=== PATIENT | female | born 2005 | race Caucasian/White ===

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

== ENCOUNTER → 2023-06-14 | Outpatient (CLI) | payer BC, SELFPAY ==
[2023-06-14 16:53] LABS: Absolute Lymphocyte Count 1.88 X10^3/uL (0.83-4.51); Absolute Neutrophil Count 3.4 X10^3/uL (2.0-7.7); Basophil# 0.04 X10^3/uL; Basophil% 0.6 % (0-1); Eosinophil# 0.04 X10^3/uL; Eosinophils% 0.6 % (0-5); Hematocrit 40.1 % (37-47); Hemoglobin 12.8 g/dL (12.0-15.0); Lymphocyte # 1.88 X10^3/ul (0.83-4.51); Lymphocyte % 30.4 % (19-41); Mean Corp Hgb Conc 31.9 g/dL (32-36); Mean Corpuscular Hgb 29.5 pg (27.0-32.0); Mean Corpuscular Volume 92.4 fL (81-99); Monocyte# 0.84 X10^3/uL; Monocyte% 13.6 % (0-10); NRBC Flagged by Analyzer 0 % (0-5); Neutrophil # 3.37 X10^3/uL (2.7-7.7); Neutrophil % 54.6 % (47-70); Platelet Count 321 K/mm3 (150-450); RBC Distribution Width CV 12.4 % (11.6-14.6); RBC Distribution Width SD 42.2 fl (35.1-43.9); Red Blood Count 4.34 M/mm3 (4.2-5.4); White Blood Count 6.2 K/mm3 (4.4-11.0)
[2023-06-14 17:29] LABS: ALB/GLOB Ratio 0.9 RATIO (0.9-2.4); AST(SGOT) 26 U/L (15-37); Alanine Aminotransfer ALT/SGPT 65 U/L (13-56); Albumin, Serum 3.5 g/dL (3.2-5.0); Alkaline Phosphatase 73 U/L (45-117); Anion Gap 5 (5-15); BUN 6 mg/dL (7-18); BUN/Creat Ratio 9.2 RATIO (10-20); Calcium,Total 8.9 mg/dL (8.5-10.1); Chloride 109 mmol/L (98-107); Creatinine, Serum 0.65 mg/dL (0.55-1.02); EST Glomerular Filtration Rate 122 mL/min (>60); Est Glom Filt Rate - Afr Amer 148 mL/min (>60); Globulin 3.8 g/dL (2.2-4.2); Glucose 97 mg/dL (74-106); Potassium 3.4 mmol/L (3.5-5.1); Protein, Total 7.3 g/dL (6.4-8.2); Sodium Level 141 mmol/L (136-145); T4 Free Direct 1.03 ng/dL (0.76-1.46)
== END | disposition home or self-care (01) ==
LOC: BIMLAB 15:48
PROVIDERS: PCP Pediatrics; Visit Provider Internal Medicine
DX: Z00.00 Encounter for general adult medical examination without abnormal findings (principal); Z13.29 Encounter for screening for other suspected endocrine disorder
CPT/HCPCS: 36415; 80053; 84439; 84443; 85025

== ENCOUNTER 2024-02-01 14:06 | Emergency (ER) | payer BC, SELFPAY ==
[2024-02-01 14:08] VITALS: BP 113/84; PULSE 74; RESP 16; TEMP 36.4; O2SAT 100; BMI 20.1
--- NOTE | 2024-02-01 14:48 | EKG12_ITS ---
Test Reason : Blood Pressure : / mmHG Vent. Rate : 074 BPM Atrial Rate : 074 BPM P-R Int : 148 ms QRS Dur : 080 ms QT Int : 356 ms P-R-T Axes : 006 050 042 degrees QTc Int : 395 ms Normal sinus rhythm Normal ECG When compared with ECG of 26-JAN-2022 01:21, No significant change was found Confirmed by Lito Cain ([id number]), editor newspaper JESSICA AZEVEDO ([id number]) on 02/06/2024 8:27:07 AM Referred By: Confirmed By:Lito Cain
--- NOTE | 2024-02-01 14:54 | EX.ED.DYSGE1 ---
HPI <CATHLEEN Amaral - Last Filed: 02/01/24 16:49> History of Present Illness Chief Complaint: Syncope Narrative Narrative: Patient is a 18-year-old female with history ADHD, heart murmur, who only takes control pills presents to the emergency department for near syncopal episode. Per the patient, she was at work today, when she was in a car that did not have any air conditioning, she was overheated. She states that she had a near syncopal episode where her vision got blurry, she lost hearing. She did not lose consciousness. However at times she sits up or stands up she feels unsteady. She denies any chest pain or shortness of breath. She did feel some palpitations. Denies any fever chills nausea or vomiting. Denies concern for . PFSH <CATHLEEN Amaral - Last Filed: 02/01/24 16:49> [facility] Medical History (Updated 02/01/24 @ 16:[address] Montana Lopez MD) Generalized anxiety disorder ADHD (attention deficit hyperactivity disorder) Encounter to establish care Screening for thyroid disorder Preventative health care Urinary tract infection VSD (ventricular septal defect) COVID-19 (08/17/21) IBS (irritable bowel syndrome) Migraine without aura Home Medications ?Medication ?Instructions ?Recorded ?Last Taken ?Type norethindrone 1 mg-ethinyl 1 tab PO DAILY 05/18/22 Unknown History estradiol 20 mcg (24)-iron 75 mg (4) tablet (Blisovi 24 Fe) Allergy/AdvReac Type Severity Reaction Status Date / Time mari Allergy Intermediate hives Verified 02/01/24 14:10 ciprofloxacin (From Cipro) Allergy Mild Vomiting Verified 02/01/24 14:11 doxycycline Allergy Mild Vomiting Verified 02/01/24 14:11 Family History Unknown Diabetes Grandfather Heart disease Rheumatic fever CVA (cerebral vascular accident) Grandmother Colon cancer Mother Diabetes Father Hypertension Skin cancer Arthritis Other Cancer Social History (Updated 02/01/24 @ 14:23 by Anna Landry) household members: family housing: house Smoking Status: Former smoker Electronic Cigarette Use: with nicotine alcohol intake: current alcohol intake frequency: a few times a month Alcohol type: other substance use type: does not use caffeine: Yes (red bull) what type of physical activity do you participate in: walking seatbelt use: always ROS <CATHLEEN Amaral - Last Filed: 02/01/24 16:49> ROS ED ROS Narrative Constitutional: Negative for fever, chills, weight loss, weakness Eyes: Negative for vision loss, vision change, double vision ENT: Negative for any sore throat, ear pain, congestion Cardiovascular: Negative for any chest pain, tightness. Positive for palpitations Respiratory: Negative for any cough, sputum production, hemoptysis, dyspnea, dyspnea on exertion, orthopnea Gastrointestinal: Negative for any abdominal pain, nausea, vomiting, diarrhea, constipation, blood in stool, blood in vomit : Negative for any urinary frequency, dysuria, retention, blood in urine Muscle skeletal: Negative for any neck pain, back pain Neurological: Negative for any headache. Positive for near syncope, dizziness Skin: Negative for any rashes, itching, abrasions, lacerations Psychiatric: Negative for any depression, anxiety, stress, suicidal ideation, homicidal ideation Hematologic: Negative for any excessive bruising, easy bleeding EXAM <CATHLEEN Amaral - Last Filed: 02/01/24 16:49> Physical Exam Narrative Exam Narrative: Vital signs reviewed. HEET: Head normocephalic atraumatic, TMs clear bilaterally. Posterior pharynx is clear, moist mucous membranes. Nares clear bilaterally. Neck: Supple with no lymphadenopathy or tenderness. No signs of meningismus. Cardiac: Regular rate and rhythm, positive systolic murmur, no gallops or rubs, equal peripheral pulses bilaterally. Respiratory: Lungs clear to auscultation bilaterally. No chest tenderness. Abdomen: Soft, nontender, nondistended. No abdominal bruit or pulsatile masses. No hepatosplenomegaly Extremities: No peripheral edema, no signs of gross trauma or deformity. Active full range of motion of all extremities. Neuro: Cranial nerves II through XII intact, no focal neurological deficits. Skin: Clean dry and intact with no rash, purpura, petechiae, vesicles or pustules. Backs/flank: No CVA tenderness, no midline spinal tenderness, no deformity. Psych: Normal mood and affect. No SI, HI or acute psychosis. Const Vital Signs: 02/01/24 14:08 02/01/24 14:24 02/01/24 15:28 Temperature 97.6 F L Temperature Source Temporal Pulse Rate 74 Respiratory Rate 16 Respiratory Effort Normal Short of Breath Respiratory Pattern Normal Blood Pressure 113/84 H Blood Pressure [Lying] 107/71 Blood Pressure [Standing (for 1 minute prior to obtaining)] 117/81 H Blood Pressure Mean 93 Blood Pressure Mean [Lying] 83 Blood Pressure Mean [Standing (for 1 minute prior to obtaining)] 93 Pulse Ox 100 Oxygen Delivery Method Room Air 02/01/24 16:07 02/01/24 16:59 Temperature 98.0 F Temperature Source Pulse Rate 74 87 Respiratory Rate 14 16 Respiratory Effort Respiratory Pattern Blood Pressure 116/67 109/64 Blood Pressure [Lying] Blood Pressure [Standing (for 1 minute prior to obtaining)] Blood Pressure Mean 83 79 Blood Pressure Mean [Lying] Blood Pressure Mean [Standing (for 1 minute prior to obtaining)] Pulse Ox 100 99 Oxygen Delivery Method Room Air <Dr. Montana Lopez MD - Last Filed: 02/01/24 21:59> Physical Exam Const Vital Signs: 02/01/24 14:08 02/01/24 14:24 02/01/24 15:28 Temperature 97.6 F L Temperature Source Temporal Pulse Rate 74 Respiratory Rate 16 Respiratory Effort Normal Short of Breath Respiratory Pattern Normal Blood Pressure 113/84 H Blood Pressure [Lying] 107/71 Blood Pressure [Standing (for 1 minute prior to obtaining)] 117/81 H Blood Pressure Mean 93 Blood Pressure Mean [Lying] 83 Blood Pressure Mean [Standing (for 1 minute prior to obtaining)] 93 Pulse Ox 100 Oxygen Delivery Method Room Air 02/01/24 16:07 02/01/24 16:59 Temperature 98.0 F Temperature Source Pulse Rate 74 87 Respiratory Rate 14 16 Respiratory Effort Respiratory Pattern Blood Pressure 116/67 109/64 Blood Pressure [Lying] Blood Pressure [Standing (for 1 minute prior to obtaining)] Blood Pressure Mean 83 79 Blood Pressure Mean [Lying] Blood Pressure Mean [Standing (for 1 minute prior to obtaining)] Pulse Ox 100 99 Oxygen Delivery Method Room Air MDM <CATHLEEN Amaral - Last Filed: 02/01/24 16:49> MDM Lab Data Labs: Laboratory Results - last 24 hr 02/01/24 02/01/24 15:00 15:03 WBC 7.0 RBC 4.90 Hgb 13.0 Hct 42.1 MCV 85.9 MCH 26.5 L MCHC 30.9 L RDW Std Deviation 42.2 RDW Coeff of Angelina 13.4 Plt Count 231 MPV 9.2 Immature Gran % (Auto) 0.900 Neut % (Auto) 59.3 Lymph % (Auto) 32.1 [place] % (Auto) 5.3 Eos % (Auto) 1.7 Baso % (Auto) 0.7 Absolute Neuts (auto) 4.2 Absolute Lymphs (auto) 2.26 Nucleated RBC % 0 Sodium 136 Potassium 3.5 Chloride 107 Carbon Dioxide 25.0 Anion Gap 4 L BUN 9 Creatinine 0.63 Estim Creat Clear Calc 112.20 Est GFR (MDRD) Af Amer 153 Est GFR (MDRD) Non-Af 126 BUN/Creatinine Ratio 14.2 Glucose 87 Calcium 8.7 Troponin I High Sens 4 Urine Color Straw Urine Clarity Clear Urine pH 6.5 Ur Specific [place] 1.010 Urine Protein Negative Urine Glucose (UA) Normal Urine Ketones Negative Urine Occult Blood Negative Urine Nitrite Negative Urine Bilirubin Negative Urine Urobilinogen Normal Ur Leukocyte Esterase Negative Urine RBC 0 SEEN Urine WBC 0-5 SEEN Ur Squamous Epith Cells 0-5 SEEN Urine Bacteria 1+ Urine Mucus 0 SEEN Urine Test Negative Radiography Diagnostic Testing: Clinical Impression(s) from Imaging Studies Chest X-Ray 02/01/24 15:35 IMPRESSION: No radiographic evidence of acute cardiopulmonary disease. Electronically Signed: Beto Fernandez DO at 16:53 EDT Reading Location ID and State: [address] [place] [address] Tel [phone], Service support , Treatment and Re-Evaluation :: Patient appears to be in no obvious respiratory distress vital signs are stable, patient is nontoxic-appearing. Presenting to the emergency department with multiple episodes of near syncope, dizziness, feeling lightheaded. Patient did receive orthostatic vital signs, this was negative. Patient received IV fluids, patient laboratory values, urinalysis, urine . Chest x-ray, troponin. Patient did have a tick bite greater than 1 month ago, I will send off a Lyme screening blood test. All radiologic examinations were read, reviewed by the emergency department attending. From these reads, a plan of care will be put in place. Patient's orthostatic vital signs are negative. Patient vital signs remained stable. Laboratory values are grossly unremarkable, negative for any acute process. No electrolyte abnormalities. Troponin was negative. Chest x-ray was negative. Patient's urinalysis negative for infection, patient is not . At this time, patient will be stable for discharge, I have no evidence suspect this is secondary to an arrhythmia, cardiac abnormality, arrhythmia. Patient is agreeable for discharge, instructed return for any worsening symptoms. <Dr. Montana Lopez MD - Last Filed: 02/01/24 21:59> [facility] Narrative Medical decision making narrative: I have personally performed a face to face assessment of the patient and have reviewed the ANKUR Note. I performed a substantive portion of the visit including all aspects of the following. My zepeda findings include: History is patient had a near syncopal episode today. 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 She went inside and had another 1 of these episodes of short duration after that and was brought to the ER. She feeling better now. She had no palpitations or racing heartbeat or dyspnea or asymmetric leg swelling/pain. No recent illness. Has a history of VSD, following with cardiology annually, last echocardiogram she remembers having was age 13. Exam is well-appearing no distress no tachycardia, lungs clear, heart is regular with a soft systolic murmur. Medical Decison Making Orthos negative. Checking labs, her is negative and urine shows no infection. EKG is normal. Less inclined to think this was a dysrhythmia, or acute coronary syndrome. I am more inclined to think this could have been a vasovagal episode due to major temperature changes, it is certainly possible she could have been relatively dehydrated even though she was drinking fluids, but the Ortho's were negative, at this time labs are negative and she has a PERC score of 0, ruling out pulmonary embolus, stable for discharge home close outpatient follow-up since she is asymptomatic at this time. Other additions or changes: [None] Lab Data Labs: Laboratory Results - last 24 hr 02/01/24 02/01/24 15:00 15:03 WBC 7.0 RBC 4.90 Hgb 13.0 Hct 42.1 MCV 85.9 MCH 26.5 L MCHC 30.9 L RDW Std Deviation 42.2 RDW Coeff of Angelina 13.4 Plt Count 231 MPV 9.2 Immature Gran % (Auto) 0.900 Neut % (Auto) 59.3 Lymph % (Auto) 32.1 [place] % (Auto) 5.3 Eos % (Auto) 1.7 Baso % (Auto) 0.7 Absolute Neuts (auto) 4.2 Absolute Lymphs (auto) 2.26 Nucleated RBC % 0 Sodium 136 Potassium 3.5 Chloride 107 Carbon Dioxide 25.0 Anion Gap 4 L BUN 9 Creatinine 0.63 Estim Creat Clear Calc 112.20 Est GFR (MDRD) Af Amer 153 Est GFR (MDRD) Non-Af 126 BUN/Creatinine Ratio 14.2 Glucose 87 Calcium 8.7 Troponin I High Sens 4 Urine Color Straw Urine Clarity Clear Urine pH 6.5 Ur Specific [place] 1.010 Urine Protein Negative Urine Glucose (UA) Normal Urine Ketones Negative Urine Occult Blood Negative Urine Nitrite Negative Urine Bilirubin Negative Urine Urobilinogen Normal Ur Leukocyte Esterase Negative Urine RBC 0 SEEN Urine WBC 0-5 SEEN Ur Squamous Epith Cells 0-5 SEEN Urine Bacteria 1+ Urine Mucus 0 SEEN Urine Test Negative Radiography Diagnostic Testing: Clinical Impression(s) from Imaging Studies Chest X-Ray 02/01/24 15:35 IMPRESSION: No radiographic evidence of acute cardiopulmonary disease. Electronically Signed: Beto Fernandez DO at 16:53 EDT Reading Location ID and State: [facility] / [place] Tel [phone], Service support , Discharge Plan Triage Chief Complaint: Syncope ED Midlevel Provider: Miguel Barrera ED Provider: Montana Lopez Dx/Rx/DC Orders Clinical Impression: Near syncope Instructions: Dizziness Fainting Causes, ED Fainting, Uncertain Cause Prescriptions: No Action norethindrone-e.estradiol-iron [Blisovi 24 Fe] 1 mg-20 mcg (24)/75 mg (4) tablet 1 tab PO DAILY Patient Comments: TAKE 1 TABLET BY MOUTHTONCE DAILY (CONTINUOUSPUSE) Primary Care Provider: Asia Stevens NP Referrals: Asia Stevens NP, [employer] [Primary Care Provider] - Activity Restrictions/Additional Instructions: Please return for any worsening symptoms. Maintain your hydration, ensure that you drink water as well as electrolytes. Print Language: Kyrgyz Disposition Disposition: Home, Self Care Discharge Date/Time: 02/01/24 16:59
[2024-02-01 15:21] LABS: Absolute Lymphocyte Count 2.26 X10^3/uL (0.83-4.51); Absolute Neutrophil Count 4.2 X10^3/uL (2.0-7.7); Basophil# 0.05 X10^3/uL; Basophil% 0.7 % (0-1); Eosinophil# 0.12 X10^3/uL; Eosinophils% 1.7 % (0-5); Hematocrit 42.1 % (37-47); Lymphocyte # 2.26 X10^3/ul (0.83-4.51); Lymphocyte % 32.1 % (19-41); Mean Corp Hgb Conc 30.9 g/dL (32-36); Mean Corpuscular Hgb 26.5 pg (27.0-32.0); Mean Corpuscular Volume 85.9 fL (81-99); Mean Platelet Vol. 9.2 fl (6.2-12.0); Monocyte# 0.37 X10^3/uL; Monocyte% 5.3 % (0-10); NRBC Flagged by Analyzer 0 % (0-5); Neutrophil # 4.18 X10^3/uL (2.7-7.7); Neutrophil % 59.3 % (47-70); Platelet Count 231 K/mm3 (150-450); RBC Distribution Width CV 13.4 % (11.6-14.6); RBC Distribution Width SD 42.2 fl (35.1-43.9)
[2024-02-01] MEDS: 0.9% Normal Saline (1000mL) 1,000 ML 999 ML IV (15:24)
[2024-02-01 15:26] LABS: Mucous, Urine 0 SEEN /hpf (<or=2+); Red Blood Cells-Urine 0 SEEN /hpf (0-5)
[2024-02-01 15:28] VITALS: BP 107/71; BP 117/81
[2024-02-01 15:30] LABS: Color, Urine Straw (Yellow); Glucose, Dipstick Normal (Normal); Ketone-Dipstick Negative (Negative); Leukocyte Esterase-Dipstick Negative /ul (Negative); Nitrite-Dipstick Negative (Negative); Occult Blood-Urine Negative /ul (Negative); Protein-Dipstick Negative (Negative); Urine Bilirubin Dipstick Negative (Negative); Urine Clarity Clear (Clear); Urine Urobilinogen Normal (Normal); Urine pH 6.5 (5.0 - 8.0)
[2024-02-01 15:33] LABS: Internal QC Validated? YES +Cl - CLEAR BKGD; Pregnancy, Urine Negative Negative
[2024-02-01 15:34] LABS: Record Kit Lot#,Urine Preg 772476
--- NOTE | 2024-02-01 15:35 | RAD_ITS ---
INDICATION: syncope EXAMINATION/TECHNIQUE: X-RAY - XR Chest 2 Views COMPARISON: FINDINGS: LINES/DEVICES: None. LUNGS: No consolidation, edema or effusion. No pneumothorax. MEDIASTINUM AND CARDIOVASCULAR STRUCTURES: Cardiac silhouette not enlarged. Central airways and mediastinal contour are unremarkable. BONES AND SOFT TISSUES: Unremarkable. RAD/Chest PA and Lateral IMPRESSION: No radiographic evidence of acute cardiopulmonary disease. Electronically Signed: Beto Fernandez DO at 16:53 EDT ,
[2024-02-01 15:40] LABS: Bacteria 1+ /hpf (None Seen); Squamous Epithelial Cells - UA 0-5 SEEN /hpf (5-10)
[2024-02-01 15:41] LABS: White Blood Cells 0-5 SEEN /hpf (0-5)
[2024-02-01 16:07] VITALS: BP 116/67; PULSE 74; RESP 14; O2SAT 100
[2024-02-01 16:45] LABS: Anion Gap 4 (5-15); BUN 9 mg/dL (7-18); BUN/Creat Ratio 14.2 RATIO (10-20); Calcium,Total 8.7 mg/dL (8.5-10.1); Chloride 107 mmol/L (98-107); Creatinine, Serum 0.63 mg/dL (0.55-1.02); EST Glomerular Filtration Rate 126 mL/min (>60); Est Glom Filt Rate - Afr Amer 153 mL/min (>60); Glucose 87 mg/dL (74-106); Potassium 3.5 mmol/L (3.5-5.1); Sodium Level 136 mmol/L (136-145); Troponin-I HS 4 pg/mL (3.0-54.0)
[2024-02-01 16:59] VITALS: BP 109/64; PULSE 87; RESP 16; TEMP 36.7; O2SAT 99
[2024-02-06 15:08] LABS: Lyme Scn Total Ab w/Rflx Negative (Negative)
== END 2024-02-01 16:59 | disposition home or self-care (01) ==
PROVIDERS: Nurse Practitioner; Emergency Provider Emergency Medicine; PCP Nurse Practitioner Primary Care; Visit Provider Emergency Medicine
DX: R55 Syncope and collapse (principal); Z79.3 Long term (current) use of hormonal contraceptives; Z87.891 Personal history of nicotine dependence
CPT/HCPCS: 71046; 80048; 81001; 81025; 84484; 85025; 86618; 93005; 96360; 99284; J7030; A4216

== ENCOUNTER → 2025-07-29 | Outpatient (CLI) | payer BC, SELFPAY ==
[2025-07-29 17:54] LABS: Hematocrit 42.8 % (37-47); Hemoglobin 14.7 g/dL (12.0-15.0); Immature Granulocytes Count 0.010 X10^3/uL (0.0-0.0); Mean Corp Hgb Conc 34.3 g/dL (32-36); Mean Corpuscular Volume 88.1 fL (81-99); Mean Platelet Vol. 9.3 fl (6.2-12.0); NRBC Flagged by Analyzer 0 % (0-5); Platelet Count 330 K/mm3 (150-450); RBC Distribution Width CV 11.9 % (11.6-14.6); RBC Distribution Width SD 38.6 fl (35.1-43.9); Red Blood Count 4.86 M/mm3 (4.2-5.4); White Blood Count 7.0 K/mm3 (4.4-11.0)
[2025-07-29 19:34] LABS: Amylase 56 U/L (28-100); CRP < 3.00 mg/L (0.0-3.0); LDH 228 U/L (84-246); Lipase 45 U/L (13-75)
== END | disposition home or self-care (01) ==
LOC: LAB 17:23
PROVIDERS: PCP Nurse Practitioner Primary Care; Referring Provider Internal Medicine Gastroenterology; Visit Provider Family Medicine
DX: R10.84 Generalized abdominal pain (principal); K58.9 Irritable bowel syndrome, unspecified
CPT/HCPCS: 36415; 82150; 83615; 83690; 85025; 85652; 86140

== ENCOUNTER → 2025-08-04 | Outpatient (CLI) | payer BC, SELFPAY | END | disposition home or self-care (01) | LOC: CT 08:03 | PROVIDERS: PCP Nurse Practitioner Primary Care; Referring Provider Internal Medicine Gastroenterology; Visit Provider Internal Medicine Gastroenterology | DX: R10.30 Lower abdominal pain, unspecified (principal); K58.9 Irritable bowel syndrome, unspecified | CPT/HCPCS: 74177; Q9967 ==